=== PATIENT | male | born 1960 | race Caucasian/White ===

== ENCOUNTER 2016-07-21 07:14 | Day surgery (SDC) | payer BC, OTHER ==
[2016-07-15 12:59] LABS: BASOPHILS 0.7 %; BASOPHILS ABSOLUTE 0.04 10/3/uL (0.0-0.16); EOSINOPHILS 3.5 %; EOSINOPHILS ABSOLUTE 0.19 10/3/uL (0.0-0.53); HEMATOCRIT 46.9 % (40.0-51.0); HEMOGLOBIN 17.2 g/dL (13.6-17.8); IMMATURE GRANULOCYTES 0.2 %; IMMATURE GRANULOCYTES ABSOLUTE 0.01 10/3/uL (0.0-0.11); LYMPHOCYTES 47.9 %; LYMPHOCYTES ABSOLUTE 2.61 10/3/uL (0.67-4.30); MEAN CORPUS HGB CONC 36.7 g/dL (32.0-36.0); MEAN CORPUSCULAR HEMOGLOB 36.1 pg (26.0-34.0); MEAN CORPUSCULAR VOLUME 98.5 fL (80-100); MEAN PLATELET VOLUME 10.5 fL (9.2-13.0); MONOCYTES 7.7 %; MONOCYTES ABSOLUTE 0.42 10/3/uL (0.21-1.20); NEUTROPHILS ABSOLUTE 2.18 10/3/uL (2.02-8.40); PLATELET COUNT 164 10/3/uL (150-400); RBC DISTRIBUTION WIDTH 11.7 % (12.0-16.0); RED CELL COUNT 4.76 10/6/uL (4.7-6.1); WHITE BLOOD CELLS 5.5 10/3/uL (4.5-10.5)
[2016-07-15 13:00] LABS: MANUAL DIFF NO %
[2016-07-15 13:09] LABS: A/G RATIO 1.2 (0.7-1.9); ALKALINE PHOSPHATASE 84 U/L (45-117); BUN (BLOOD UREA NITROGEN) 8 MG/DL (6-23); CALCIUM, SERUM 8.6 MG/DL (8.5-10.4); CHLORIDE, SERUM 102 MMOL/L (96-112); CO2 (CARBON DIOXIDE) 29 MMOL/L (24-34); CREATININE 1.19 MG/DL (0.70-1.30); GFR AFRICAN AMERICAN 80 ML/MIN (>=60); GFR NON AFRICAN AMERICAN 69 ML/MIN (>=60); GLOBULIN 3.3 G/DL (2.5-4.1); GLUCOSE, SERUM 109 MG/DL (60-99); POTASSIUM, SERUM 3.7 MMOL/L (3.5-5.3); SGOT(AST) 12 U/L (5-40); SGPT(ALT) 21 U/L (5-65); SODIUM, SERUM 141 MMOL/L (135-148); TOTAL BILIRUBIN 0.5 MG/DL (0-1.2); TOTAL PROTEIN 7.3 G/DL (6.0-8.5)
[~2016-07-21 07:14] MED LIST: GENVOYA PO
== END 2016-07-21 23:59 | disposition home health service (06) ==
LOC: SDC 07:14
PROVIDERS: Urology
DX: N43.3 Hydrocele, unspecified (principal); Z53.9 Procedure and treatment not carried out, unspecified reason
CPT/HCPCS: 80053; 85025; 93005; J0690

== ENCOUNTER 2016-08-18 07:21 | Day surgery (SDC) | payer BC, OTHER ==
[2016-08-16 16:15] LABS: BASOPHILS 1.5 %; BASOPHILS ABSOLUTE 0.07 10/3/uL (0.0-0.16); EOSINOPHILS 2.7 %; EOSINOPHILS ABSOLUTE 0.13 10/3/uL (0.0-0.53); HEMATOCRIT 44.8 % (40.0-51.0); HEMOGLOBIN 16.1 g/dL (13.6-17.8); LYMPHOCYTES 30.7 %; LYMPHOCYTES ABSOLUTE 1.45 10/3/uL (0.67-4.30); MEAN CORPUS HGB CONC 35.9 g/dL (32.0-36.0); MEAN CORPUSCULAR HEMOGLOB 35.9 pg (26.0-34.0); MEAN CORPUSCULAR VOLUME 99.8 fL (80-100); MEAN PLATELET VOLUME 10.7 fL (9.2-13.0); MONOCYTES 7.2 %; MONOCYTES ABSOLUTE 0.34 10/3/uL (0.21-1.20); NEUTROPHILS 57.9 %; NEUTROPHILS ABSOLUTE 2.74 10/3/uL (2.02-8.40); PLATELET COUNT 159 10/3/uL (150-400); RED CELL COUNT 4.49 10/6/uL (4.7-6.1); WHITE BLOOD CELLS 4.7 10/3/uL (4.5-10.5)
[2016-08-16 16:16] LABS: MANUAL DIFF NO %
[2016-08-16 16:20] LABS: A/G RATIO 1.4 (0.7-1.9); ALBUMIN 4.4 G/DL (3.5-5.0); ALKALINE PHOSPHATASE 90 U/L (45-117); CALCIUM, SERUM 8.5 MG/DL (8.5-10.4); CHLORIDE, SERUM 104 MMOL/L (96-112); CO2 (CARBON DIOXIDE) 31 MMOL/L (24-34); CREATININE 1.04 MG/DL (0.70-1.30); GFR AFRICAN AMERICAN 94 ML/MIN (>=60); GFR NON AFRICAN AMERICAN 81 ML/MIN (>=60); GLOBULIN 3.1 G/DL (2.5-4.1); GLUCOSE, SERUM 106 MG/DL (60-99); POTASSIUM, SERUM 3.9 MMOL/L (3.5-5.3); SGOT(AST) 20 U/L (5-40); SGPT(ALT) 24 U/L (5-65); SODIUM, SERUM 141 MMOL/L (135-148); TOTAL BILIRUBIN 0.5 MG/DL (0-1.2); TOTAL PROTEIN 7.5 G/DL (6.0-8.5)
[2016-08-16 16:21] LABS: BUN (BLOOD UREA NITROGEN) 13 MG/DL (6-23)
--- NOTE | ~2016-08-18 | OP ---
Record Of Operation [facility] [address] [place]. [address] NAME: JOAN JOYCE : 62 STATUS : [place] [facility] [place] [facility] [place] PAT#: [id number] AGE: 55 ADM/REG DATE : 08/18/16 MR#: [id number] REPORT SERV DATE: 08/18/16 DICTATED BY: MEHUL SHAFFER DATE: 08/18/16 REPORT STATUS : Draft TRANSCRIBED BY: MODSky DATE: 08/18/16 DATE OF PROCEDURE: 08/18/2016 PREOPERATIVE DIAGNOSIS: Left hydrocele. POSTOPERATIVE DIAGNOSIS: Left hydrocele. OPERATIVE PROCEDURE: Left hydrocelectomy. ANESTHESIA: General inhalation. SURGEON: Mehul Shaffer M.D. SPECIMENS: 1. Calcification from within hydrocele sac ("Alba"). 2. Hydrocele sac. ESTIMATED BLOOD LOSS: Less than 10 mL. DRAINS: None. IMMEDIATE POSTOP: Satisfactory. DESCRIPTION OF PROCEDURE: The patient was brought into the surgery suite, placed in supine position on the operating table, and given general inhalational anesthetic. The scrotum was then shaved, prepped and draped in a sterile fashion. Left mile-scrotal incision was made and carried down through the scrotal wall with the Bovie cautery, then using combination of blunt and sharp dissection, and Bovie cautery where indicated. The hydrocele sac and testis/spermatic cord were delivered from the left hemiscrotum. The hydrocele was of moderate size. The hydrocele sac was then opened and drained of about a 150 mL of clear anali fluid. Hydrocele sac was then opened using Bovie cautery along its long axis. The testis was inspected and noted to be normal, it was a small calcification ("Alba") within the hydrocele sac which was delivered for specimen to Pathology. The excess hydrocele sac was then removed using Bovie cautery and submitted to Pathology. The redundant sac was then "bottle necked." The posterior portion of the spermatic cord was sutured loosely into place with a running 3-0 chromic catgut suture. Hemostasis was completed on the cord and testis. The left hemiscrotum was then copiously irrigated and there was no active bleeding noted. The testis and spermatic cord were then placed back in the left hemiscrotum, which was then closed in layers. Sterile dressing was applied. The patient was awakened sent to the recovery in satisfactory condition. MS/MODL Mehul Record Of Operation [facility] [address] [place]. [address] NAME: JOAN JOYCE : 62 STATUS : [place] [facility] [place] [facility] [place] PAT#: [id number] AGE: 55 ADM/REG DATE : 08/18/16 MR#: [id number] REPORT SERV DATE: 08/18/16 DICTATED BY: MEHUL SHAFFER DATE: 08/18/16 REPORT STATUS : Draft TRANSCRIBED BY: MODL DATE: 08/18/16 Laurel Shaffer / [id number] CC: Laurel Mg M.D.
== END 2016-08-18 13:50 | disposition home or self-care (01) ==
LOC: SDC 07:21
PROVIDERS: Urology
PROC: 0VB70ZZ Excision of Left Tunica Vaginalis, Open Approach (ICD-10-PCS; principal; 2016-08-18 08:45)
DX: N43.3 Hydrocele, unspecified (principal); B20 Human immunodeficiency virus [HIV] disease; Z88.0 Allergy status to penicillin; Z88.2 Allergy status to sulfonamides; Z88.5 Allergy status to narcotic agent
CPT/HCPCS: 80053; 85025; 88300; 88302; J0690; J1200; J2250; J2370; J2405; J3010